=== PATIENT | male | born 2005 | race Two or more races ===

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

== ENCOUNTER 2025-09-07 12:41 | Emergency (ER) | payer OTHER, SELFPAY ==
--- NOTE | ~2025-09-07 | XR_ITS ---
EXAMINATION: XR KNEE, RIGHT CLINICAL INFORMATION: knee pain COMPARISON: None available. TECHNIQUE: Four views of the right knee. FINDINGS: The distal end of an intramedullary nail with 2 distal interlocking screws is seen. There is no abnormal lucency along the hardware. Hardware traverses a partially imaged distal diaphyseal fracture of the femur. There is maturing periosteal, medullary and cortical new bone formation. There is no joint effusion. Joint spaces are preserved. No osteophytes are identified. XR/XR knee RT 4V IMPRESSION: Healing partially imaged distal femoral fracture post-ORIF. Unremarkable right knee. Electronically signed by: Francisco Javier Mckeon MD 09/07/2025 02:51 PM EST
[2025-09-07 13:56] VITALS: BP 116/62; PULSE 83; RESP 16; TEMP 36.1; O2SAT 99; BMI 20.6
--- NOTE | 2025-09-07 14:01 | ED.GENADULT ---
HPI - General Adult General Chief complaint: Extremity Problem Stated complaint: Knee Leg Pain Time Seen by Provider: 09/07/25 15:11 Source: patient Mode of arrival: ambulatory Limitations: no limitations History of Present Illness ED Provider: Nawaf Crooks HPI narrative: 20 yold male with pmh of distal femur repair presents to the ED For right knee pain hearing clicking sound. Patient states hemight have injured his meniscus while walking over the weekend. Patient has secondary complaint of sore throat without any coughing, fever, chills, chest pain or shortness of breath. Related Data Previous Rx's ?Medication ?Instructions ?Recorded mupirocin 2 % topical ointment 1 appl topical TID 5 days #15 grams 04/03/24 naproxen 500 mg tablet 500 mg PO BID PRN pain #14 tabs 09/07/25 Allergies Allergy/AdvReac Type Severity Reaction Status Date / Time No Known Allergies Allergy Verified 09/07/25 13:59 Review of Systems Review of Systems: Right knee pain. Sore throat Yes all other systems are reviewed and are negative [facility] Social History Social History Advance Directives: No Advance Directives Information Provided: Yes Physical Exam ED Vital Signs: Vital Signs - 24 hr 09/07/25 13:56 09/07/25 15:29 Temperature 97 F 97 F Pulse Rate 83 83 Respiratory Rate 16 16 Blood Pressure 116/62 116/62 Pulse Oximetry 99 99 Oxygen Delivery Method Room Air Room Air BMI result Body Mass Index 20.6 Const General: cooperative, healthy appearing, comfortable, no acute distress, well developed, alert, awake and Physically active Orientation/consciousness: patient oriented x3 HENMT Head: Yes normal to inspection, Yes No palpable skull fracture present, Yes normocephalic and Yes atraumatic Ears: hearing grossly normal bilaterally, external ears normal, TM's normal bilaterally, TM normal on the right, TM normal on the left, EAC's normal, mastoids normal and no periauricular adenopathy Throat: Yes posterior oropharynx normal, Yes tonsils normal and Yes uvula midline Eyes General: appearance normal, both eyes and all related structures Neck Neck: Yes normal visual inspection, Yes full ROM, Yes no lymphadenopathy, Yes no meningeal signs, Yes trachea midline, Yes supple, No anterior neck swelling and No tender Chest Chest palpation & inspection: normal inspection of the chest and normal palpation of entire chest wall Resp Effort & Inspection: normal respiratory effort and able to speak in complete sentences Auscultation: clear to auscultation bilaterally Cardio Jugular venous distension: no JVD Heart sounds: S1 normal heart sound present and S2 normal heart sound present GI Inspection: Yes normal to inspection Palpation (GI): Soft to palpation, not firm, nontender, no guarding and not rigid General: Yes no CVA tenderness Back/Spine/Pelvis Back: no CVA tenderness and No back tenderness Skin General skin exam: no rashes or lesions noted, elasticity normal and turgor normal Neuro General: patient oriented x3, gait normal, tone normal, moves all extremities, Normal light touch and pain sensation, no meningeal signs, no focal motor deficits, CN's II-XI intact bilaterally and normal sensation to monofilament Extrem General: Yes normal to inspection, Yes full ROM and Yes capillary refill normal Knee images:  1. Patient states pain on range of motion in the area. Positive for tenderness on palpation. Negative for neck swelling, redness, ecchymosis, deformity, crepitus, hotness, coldness, or stiffness. Rest of extremity normal. Motor/neuro/vascular exam intact Psych Appearance: grossly normal, well kempt and not disheveled Course Course Course Narrative: RME: 20-year-old male presents to ED for right knee pain and sore throat. Patient states history of femur fracture 6 months ago in the past 3 days he has had right knee pain. Patient denies any swelling, stiffness, or redness. Patient states clicking in the right knee when he moves with the knee. Patient has secondary complaint is sore throat without any chest pain coughing or shortness of breath. Swabs x-ray ordered Medical Decision Making Medical Decision Making MDM Narrative: 20-year-old male presents to ED for sore throat right knee pain. X-ray negative for any new fracture or hardware dislocation. Swabs negative. Not suspecting septic joint, osteomyelitis, gout, peritonsillar abscess, Jacek's angina, retropharyngeal abscess, pneumonia, PE, chest pain, ME, or any other life-threatening etiology. Patient explained worrisome signs informed return to the ED immediately Differential Diagnosis Differential Diagnoses: The differential diagnosis associated with the presentation includes (knee sprain, sore throat, pharyngitits, ) Admission/Observation Consideration of admission/observation: Escalation of care including admission/observation considered Lab Data MDM Lab Attestation statement: I reviewed the patient's lab results. Labs: Lab Results 09/07/25 Range/Units 14:09 COVID-19 ([facility]) Negative (Negative) COVID-19 Clin Com See Note Influenza Type A (MICHAEL) Negative (Negative) Influenza Type B (MICHAEL) Negative (Negative) Influenza A & B Note See Note Independent Interpretation I performed an independent interpretation of an: Plain X-Ray Radiology Impression Discussion of test interpretation with radiology: I have reviewed the radiologist's reading. Independent Historian Clinical information obtained from an independent historian. History obtained from or confirmed by: Other (patinet) Prescription Management I considered prescription management with: Pain Medication Discharge Plan Discharge Clinical Impression: Knee sprain, Pharyngitis Patient Disposition: Home, Self-Care Instructions: Knee Sprain (ED), Pharyngitis (ED), P.R.I.C.E. Treatment (ED) Additional Instructions: Recommend follow up with primary care provider and orthopedics for re-evaluation of the right knee. If you continue to have discomfort you may need MRI. Return to the ED immediately for any swelling of the knee, redness, stiffness, fever, chills, calf pain, chest pain or shortness of breath, drooling, change in voice, inability tolerate solid food/liquid, or any other concerning symptoms. Ordering Physician: Nawaf Crooks Date of Service: 09/07/25 Procedure(s): XR knee RT 4V Accession Number(s): [id number] cc: Nawaf Crooks; Physician,Unknown ~ Reason for Exam: knee pain EXAMINATION: XR KNEE, RIGHT CLINICAL INFORMATION: knee pain COMPARISON: None available. TECHNIQUE: Four views of the right knee. FINDINGS: The distal end of an intramedullary nail with 2 distal interlocking screws is seen. There is no abnormal lucency along the hardware. Hardware traverses a partially imaged distal diaphyseal fracture of the femur. There is maturing periosteal, medullary and cortical new bone formation. There is no joint effusion. Joint spaces are preserved. No osteophytes are identified. XR/XR knee RT 4V IMPRESSION: Healing partially imaged distal femoral fracture post-ORIF. Unremarkable right knee. Electronically signed by: Francisco Javier Mckeon MD 09/07/2025 02:51 PM EST Prescriptions: New naproxen 500 mg tablet 500 mg PO BID PRN (Reason: pain) Qty: 14 0RF No Action mupirocin 2 % ointment 1 appl topical TID 5 Days Qty: 15 0RF Referrals: [facility] [Provider Group] - 2 days Referral Note: Knee pain. May need MRI to rule out meniscus ligament injury Clinical Impression: Knee sprain Stand Alone Forms: Work/School Release Interventions: ED Discharge Assessment Last Done: 09/07/25 15:29 Discharge Date/Time: 09/07/25 15:33 Print Language: Telugu
[2025-09-07 14:34] LABS: COVID-19 Test Negative (Negative); IDNOW Serial# 55D5AD1C; IDNOW Serial# 58CA691E; Influenza B2 Negative (Negative)
[2025-09-07 15:29] VITALS: BP 116/62; PULSE 83; RESP 16; TEMP 36.1; O2SAT 99
== END 2025-09-07 15:33 | disposition home or self-care (01) ==
PROVIDERS: Physician Assistant; Emergency Provider Emergency Medicine
DX: S83.91XA Sprain of unspecified site of right knee, initial encounter (principal); Y93.01 Activity, walking, marching and hiking; Y93.9 Activity, unspecified; Y92.9 Unspecified place or not applicable; Z98.890 Other specified postprocedural states; J02.9 Acute pharyngitis, unspecified; Z03.818 Encounter for observation for suspected exposure to other biological agents ruled out
CPT/HCPCS: 73564; 87502; 87635; 99282; 99283

== ENCOUNTER → 2025-09-07 14:01 | Outpatient (BNV) | payer OTHER, SELFPAY | PROVIDERS: Visit Provider Radiology Diagnostic Radiology | DX: S72.401D Unspecified fracture of lower end of right femur, subsequent encounter for closed fracture with routine healing (principal) | CPT/HCPCS: 73564 ==